=== PATIENT | male | born 1980 | race Caucasian/White ===

== ENCOUNTER 2021-07-14 15:29 | Emergency (ER) | payer OTHER ==
[2021-07-14] MEDS ORDERED: HYDROCODON-ACE1 EAC4 PO (17:00)
== END 2021-07-14 17:12 | disposition home or self-care (01) ==
LOC: ER1 15:29
DX: S22.31XA Fracture of one rib, right side, initial encounter for closed fracture (principal); S46.811A Strain of other muscles, fascia and tendons at shoulder and upper arm level, right arm, initial encounter; F17.200 Nicotine dependence, unspecified, uncomplicated; Z88.0 Allergy status to penicillin; V86.99XA Unspecified occupant of other special all-terrain or other off-road motor vehicle injured in nontraffic accident, initial encounter
CPT/HCPCS: 71046; 99283

== ENCOUNTER 2021-12-03 21:21 | Emergency (ER) | payer OTHER ==
[~2021-12-03 21:21] MED LIST: HYDROCODON-ACE1 EAC4 PO
== END 2021-12-04 01:10 | disposition home or self-care (01) ==
LOC: ER1 21:21
DX: M54.50 Low back pain, unspecified (principal); F17.210 Nicotine dependence, cigarettes, uncomplicated; Z88.0 Allergy status to penicillin
CPT/HCPCS: 72131; 96372; 99284; J1100; J1885

== ENCOUNTER 2021-12-24 22:13 | Emergency (ER) | payer OTHER ==
[2021-12-25 01:22] LABS: HEMOGLOBIN 14.6 gm/dl (14.0-17.5); RED BLOOD COUNT 4.68 M/UL (4.20-5.50); WHITE BLOOD COUNT 10.1 K/UL (4.5-11.0)
[2021-12-25 01:48] LABS: BUN/CREATININE RATIO 21 (0-10)
[2021-12-25] MEDS ORDERED: CYCLOBENZAPRINE10 MG PO (02:35)
== END 2021-12-25 02:49 | disposition home or self-care (01) ==
LOC: ER1 22:13
DX: S39.012A Strain of muscle, fascia and tendon of lower back, initial encounter (principal); R03.0 Elevated blood-pressure reading, without diagnosis of hypertension; R10.9 Unspecified abdominal pain; F17.200 Nicotine dependence, unspecified, uncomplicated; Z88.0 Allergy status to penicillin; X50.9XXA Other and unspecified overexertion or strenuous movements or postures, initial encounter
CPT/HCPCS: 74018; 80053; 81001; 85025; 96374; 99284; J1885